=== PATIENT | male | born 2000 | race Caucasian/White ===

== ENCOUNTER 2020-03-04 13:30 | Emergency (ER) | payer SELFPAY ==
[~2020-03-04] VITALS: Ht 177.8 cm; Wt 74.8 kg
[2020-03-04] MEDS ORDERED: KETO10 PO (16:25)
== END 2020-03-04 16:33 | disposition home or self-care (01) ==
LOC: ER 13:30
DX: S01.81XA Laceration without foreign body of other part of head, initial encounter (principal); Z23 Encounter for immunization; V18.0XXA Pedal cycle driver injured in noncollision transport accident in nontraffic accident, initial encounter
CPT/HCPCS: 12011; 70486; 90471; 90714; 99284-25